=== PATIENT | female | born 1970 | race Caucasian/White ===

== ENCOUNTER 2021-11-08 08:53 | Emergency (ER) | payer SELFPAY ==
[~2021-11-08] VITALS: Ht 152.4 cm; Wt 68.1 kg
[2021-11-08 08:59] VITALS: BP 205/119
[2021-11-08 09:30] VITALS: BP 167/107
[2021-11-08] MEDS ORDERED: PAXLOVID PO (09:44)
[2021-11-08 09:53] VITALS: BP 167/107
== END 2021-11-08 09:53 | disposition home or self-care (01) | DRG 179 ==
LOC: ED 08:53
DX: U07.1 COVID-19 (principal); H92.02 Otalgia, left ear; R51.9 Headache, unspecified; R09.89 Other specified symptoms and signs involving the circulatory and respiratory systems

== ENCOUNTER 2022-05-04 13:34 | Emergency (ER) | payer SELFPAY ==
[~2022-05-04] VITALS: Ht 152.4 cm; Wt 69.0 kg
[2022-05-04] VITALS (11 sets, daily range): BP systolic 150–202; BP diastolic 95–133
[~2022-05-04 13:34] MED LIST: PAXLOVID PO
[2022-05-04 15:55] LABS: BASO% 0.4 % (0-3); EOS% 0.4 % (0-8); HEMATOCRIT 38.7 % (37.0-47.0); HEMOGLOBIN 13.9 g/dl (12.0-16.0); IMMATURE GRANULOCYTES 0.2 % (0.0-5.0); LYMPH% 14.7 % (15-41); MEAN CELL VOLUME 89.8 fL CALC (80.0-100.0); MEAN CORPUSCULAR HGB 32.3 pG CALC (26.0-32.0); MEAN CORPUSCULAR HGB CONC 35.9 g/dL CAL (32.0-36.0); MONO% 4.6 % (2-13); NEUT# 9.81 thou/uL (2.00-7.15); NEUT% 79.7 % (42-76); RED BLOOD COUNT 4.31 mill/uL (4.20-5.60); RED CELL DISTRI WIDTH 13.1 % (11.5-15.5)
[2022-05-04 16:08] LABS: ALBUMIN 4.5 g/dL (3.2-5.0); ALKALINE PHOSPHATASE 103 u/l (38-126); ANION GAP 11 (6-22 (CALC)); BILIRUBIN, TOTAL 0.8 mg/dL (0.0-1.4); BUN 5 mg/dL (7-17); BUN/CREATININE RATIO 8 (12-20 (CALC)); CARBON DIOXIDE 27 mmol/l (22-30); CHLORIDE 103 mmol/l (95-108); CREATININE 0.6 mg/dL (0.5-1.0); GFR FOR AFR.AMER. > 60 ML/MIN (>=60 (CALC)); GFR OTHER RACES > 60 ML/MIN (>=60 (CALC)); POTASSIUM 3.3 mmol/l (3.5-5.1); SGOT/AST 26 u/l (14-36); SODIUM 137 mmol/l (137-146); TOTAL PROTEIN 8.9 g/dL (6.3-8.2)
[2022-05-04 16:55] LABS: URINE BILIRUBIN - DIPSTICK NEGATIVE (NEGATIVE); URINE BLOOD DIPSTICK SMALL (NEGATIVE); URINE COLOR YELLOW; URINE GLUCOSE - DIPSTICK NEGATIVE (NEGATIVE); URINE KETONE 15 mg/dL (NEGATIVE); URINE LEUK ESTERASE NEGATIVE (NEGATIVE); URINE PROTEIN - DIPSTICK TRACE mg/dL (NEG-TRACE); URINE SPECIFIC GRAVITY 1.025
[2022-05-04 17:10] LABS: URINE NITRITE - DIPSTICK NEGATIVE (Negative)
[2022-05-04 17:14] LABS: URINE RBC 0-2 RBC/hpf (0-5); URINE SQUAMOUS EPITHELIAL CELL FEW EPI/hpf (0-FEW); URINE WBC 0-2 WBC/hpf (0-5)
[2022-05-04] MEDS ORDERED: NORVASC5 M1 PO (19:28)
[2022-05-04] MEDS ORDERED: ZYRTEC10 MG PO (19:28)
== END 2022-05-04 20:30 | disposition home or self-care (01) | DRG 866 ==
LOC: ED 13:34
PROVIDERS: Family Medicine; Nurse Practitioner
DX: B34.9 Viral infection, unspecified (principal); I10 Essential (primary) hypertension

== ENCOUNTER 2022-07-19 17:54 | Emergency (ER) | payer SELFPAY ==
[~2022-07-19] VITALS: Ht 152.4 cm; Wt 67.1 kg
[~2022-07-19 17:54] MED LIST changes: +NORVASC5 M1 PO; +ZYRTEC10 MG PO
[2022-07-19 19:27] VITALS: BP 195/111
[2022-07-19 19:30] VITALS: BP 184/124
[2022-07-19 19:50] LABS: URINE BILIRUBIN - DIPSTICK NEGATIVE (NEGATIVE); URINE BLOOD DIPSTICK TRACE-INTACT (NEGATIVE); URINE COLOR YELLOW; URINE GLUCOSE - DIPSTICK NEGATIVE (NEGATIVE); URINE KETONE NEGATIVE (NEGATIVE); URINE LEUK ESTERASE NEGATIVE (NEGATIVE); URINE PROTEIN - DIPSTICK NEGATIVE (NEG-TRACE); URINE SPECIFIC GRAVITY >=1.030; URINE UROBILINOGEN - DIPSTICK 0.2 E.U./dL (0.2)
[2022-07-19 19:57] LABS: URINE NITRITE - DIPSTICK NEGATIVE (Negative)
[2022-07-19 21:45] VITALS: BP 135/72
== END 2022-07-19 21:48 | disposition home or self-care (01) | DRG 761 ==
LOC: ED 17:54
PROVIDERS: Family Medicine
DX: N89.8 Other specified noninflammatory disorders of vagina (principal)

== ENCOUNTER 2023-01-16 11:11 | Emergency (ER) | payer SELFPAY ==
[~2023-01-16] VITALS: Ht 152.4 cm; Wt 70.0 kg
[2023-01-16] VITALS (23 sets, daily range): BP systolic 134–215; BP diastolic 91–131
[2023-01-16] MEDS ORDERED: LISINOP/HCTZ1 TA2 PO (13:37)
== END 2023-01-16 15:14 | disposition home or self-care (01) | DRG 305 ==
LOC: ED 11:11
DX: I10 Essential (primary) hypertension (principal); T46.5X6A Underdosing of other antihypertensive drugs, initial encounter; Z91.128 Patient's intentional underdosing of medication regimen for other reason

== ENCOUNTER 2023-12-22 07:45 | Emergency (ER) | payer OTHER ==
[~2023-12-22] VITALS: Ht 152.4 cm; Wt 70.0 kg
[2023-12-22] VITALS (12 sets, daily range): BP systolic 113–141; BP diastolic 80–98
[~2023-12-22 07:45] MED LIST changes: +AMOX/K CLAV875 M1 PO; +LISINOP/HCTZ1 TA2 PO; +PERCOCET 5/325M1 TAB PO
[2023-12-22 08:21] LABS: URINE BILIRUBIN - DIPSTICK Negative (NEGATIVE); URINE BLOOD DIPSTICK Trace-lysed (NEGATIVE); URINE GLUCOSE - DIPSTICK Negative (NEGATIVE); URINE KETONE Negative (NEGATIVE); URINE LEUK ESTERASE Negative (NEGATIVE); URINE NITRITE - DIPSTICK Negative (Negative); URINE PH 5.5 (4.5-8.0); URINE PROTEIN - DIPSTICK Negative (NEG-TRACE); URINE SPECIFIC GRAVITY 1.025; URINE UROBILINOGEN - DIPSTICK 0.2 E.U./dL (0.2)
[2023-12-22 08:25] LABS: URINE COLOR Yellow
[2023-12-22] MEDS ORDERED: KETOROLAC TROMETHAMINE 30 MG/ML SDV IV ONE (09:20)
[2023-12-22] MEDS ORDERED: ASPIRIN 81 MG/TAB PO ONE (09:20)
[2023-12-22 09:53] LABS: BASO% 0.4 % (0-3); EOS% 0.6 % (0-8); HEMATOCRIT 37.5 % (37.0-47.0); HEMOGLOBIN 12.6 g/dl (12.0-16.0); IMMATURE GRANULOCYTES 0.2 % (0.0-5.0); LYMPH% 14.2 % (15-41); MEAN CELL VOLUME 92.8 fL CALC (80.0-100.0); MEAN CORPUSCULAR HGB 31.2 pG CALC (26.0-32.0); MEAN CORPUSCULAR HGB CONC 33.6 g/dL CAL (32.0-36.0); MONO% 6.8 % (2-13); NEUT# 8.8 thou/uL (2.00-7.15); NEUT% 77.8 % (42-76); RED BLOOD COUNT 4.04 mill/uL (4.20-5.60); RED CELL DISTRI WIDTH 12.7 % (11.5-15.5)
[2023-12-22 10:05] LABS: ALBUMIN 4.3 g/dL (3.2-5.0); ALKALINE PHOSPHATASE 59 u/l (38-126); ANION GAP 8 (6-22 (CALC)); BUN 13 mg/dL (7-17); BUN/CREATININE RATIO 18 (12-20 (CALC)); CARBON DIOXIDE 26 mmol/l (22-30); CHLORIDE 108 mmol/l (95-108); CREATININE 0.7 mg/dL (0.5-1.0); ESTIMATED GFR 105 ML/MIN (>=90 (CALC)); LIPASE 41 u/l (23-300); POTASSIUM 4.2 mmol/l (3.5-5.1); SGOT/AST 32 u/l (14-36); SODIUM 137 mmol/l (137-146); TOTAL PROTEIN 8.1 g/dL (6.3-8.2)
[2023-12-22 10:06] LABS: BILIRUBIN, TOTAL 0.9 mg/dL (0.02-1.3)
[2023-12-22] MEDS ORDERED: PAXLOVID PO (10:24)
== END 2023-12-22 10:41 | disposition home or self-care (01) | DRG 179 ==
LOC: ED 07:45
PROVIDERS: Family Medicine
DX: U07.1 COVID-19 (principal); R05.9 Cough, unspecified; I10 Essential (primary) hypertension

== ENCOUNTER 2024-01-26 14:48 | Emergency (ER) | payer OTHER ==
[2024-01-26] VITALS (9 sets, daily range): BP systolic 122–153; BP diastolic 78–117
[~2024-01-26] VITALS: Ht 152.4 cm; Wt 72.5 kg
[2024-01-26 15:33] LABS: BASO% 0.4 % (0-3); EOS% 1.1 % (0-8); HEMATOCRIT 40.8 % (37.0-47.0); IMMATURE GRANULOCYTES 0.1 % (0.0-5.0); LYMPH% 36.8 % (15-41); MEAN CELL VOLUME 91.7 fL CALC (80.0-100.0); MEAN CORPUSCULAR HGB 31.5 pG CALC (26.0-32.0); MEAN CORPUSCULAR HGB CONC 34.3 g/dL CAL (32.0-36.0); MONO% 4.5 % (2-13); NEUT# 5.89 thou/uL (2.00-7.15); NEUT% 57.1 % (42-76); RED BLOOD COUNT 4.45 mill/uL (4.20-5.60); RED CELL DISTRI WIDTH 12.7 % (11.5-15.5)
[2024-01-26] MEDS ORDERED: HYDROmorphone HCL 2 MG/AMP IV ONE (15:35)
[2024-01-26 15:36] LABS: URINE BILIRUBIN - DIPSTICK Negative (NEGATIVE); URINE BLOOD DIPSTICK Negative (NEGATIVE); URINE GLUCOSE - DIPSTICK Negative (NEGATIVE); URINE KETONE Negative (NEGATIVE); URINE LEUK ESTERASE Negative (NEGATIVE); URINE NITRITE - DIPSTICK Negative (Negative); URINE PH 5.5 (4.5-8.0); URINE PROTEIN - DIPSTICK Negative (NEG-TRACE); URINE SPECIFIC GRAVITY >=1.030; URINE UROBILINOGEN - DIPSTICK 0.2 E.U./dL (0.2)
[2024-01-26 15:37] LABS: URINE COLOR Yellow
[2024-01-26 15:45] LABS: ALBUMIN 4.7 g/dL (3.2-5.0); AMYLASE 70 u/l (30-110); CREATININE 0.8 mg/dL (0.5-1.0); LIPASE 108 u/l (23-300); TOTAL PROTEIN 8.6 g/dL (6.3-8.2)
[2024-01-26 15:46] LABS: BILIRUBIN, TOTAL 0.5 mg/dL (0.02-1.3)
[2024-01-26] MEDS ORDERED: METHOCARBAMOL500 MG PO (17:08)
== END 2024-01-26 17:23 | disposition home or self-care (01) | DRG 392 ==
LOC: ED 14:48
PROVIDERS: Emergency Medicine; Nurse Practitioner Family
DX: R10.11 Right upper quadrant pain (principal); M54.6 Pain in thoracic spine; I10 Essential (primary) hypertension; Z90.49 Acquired absence of other specified parts of digestive tract
CPT/HCPCS: Q9967

== ENCOUNTER 2024-04-10 06:29 | Emergency (ER) | payer OTHER ==
[~2024-04-10] VITALS: Ht 152.4 cm; Wt 78.0 kg
[~2024-04-10 06:29] MED LIST changes: +METHOCARBAMOL500 MG PO
[2024-04-10] MEDS ORDERED: KETOROLAC TROMETHAMINE 30 MG/ML SDV IV ONE (07:10)
[2024-04-10 07:31] LABS: URINE BLOOD DIPSTICK Moderate (NEGATIVE); URINE GLUCOSE - DIPSTICK Negative (NEGATIVE); URINE KETONE Negative (NEGATIVE); URINE LEUK ESTERASE Negative (NEGATIVE); URINE PROTEIN - DIPSTICK Trace mg/dL (NEG-TRACE); URINE SPECIFIC GRAVITY >=1.030
[2024-04-10 07:33] LABS: URINE COLOR Yellow
[2024-04-10 07:34] LABS: BASO% 0.2 % (0-3); EOS% 1.1 % (0-8); HEMATOCRIT 37.5 % (37.0-47.0); HEMOGLOBIN 12.7 g/dl (12.0-16.0); IMMATURE GRANULOCYTES 0.1 % (0.0-5.0); LYMPH% 32.5 % (15-41); MEAN CELL VOLUME 91.5 fL CALC (80.0-100.0); MEAN CORPUSCULAR HGB CONC 33.9 g/dL CAL (32.0-36.0); MONO% 5.9 % (2-13); NEUT# 4.88 thou/uL (2.00-7.15); NEUT% 60.2 % (42-76); RED BLOOD COUNT 4.1 mill/uL (4.20-5.60); RED CELL DISTRI WIDTH 12.4 % (11.5-15.5)
[2024-04-10 07:41] LABS: URINE NITRITE - DIPSTICK Negative (Negative)
[2024-04-10 07:42] LABS: URINE BACTERIA RARE hpf; URINE EPITHELIAL CELLS MODERATE EPI/hpf (0-FEW); URINE MUCUS FEW hpf (NONE-FEW); URINE WBC 0-2 WBC/hpf (0-5)
[2024-04-10 07:50] LABS: ALBUMIN 4.4 g/dL (3.2-5.0); TOTAL PROTEIN 7.9 g/dL (6.3-8.2)
[2024-04-10 07:55] LABS: CREATININE 0.7 mg/dL (0.5-1.0)
[2024-04-10] MEDS ORDERED: METHOCARBAMOL500 MG PO (11:09)
[2024-04-10] MEDS ORDERED: IBUPROFEN600 MG PO (11:09)
[2024-04-10 11:24] VITALS: BP 116/87
== END 2024-04-10 11:53 | disposition home or self-care (01) | DRG 392 ==
LOC: ED 06:29
PROVIDERS: Emergency Medicine
DX: R10.9 Unspecified abdominal pain (principal); R31.9 Hematuria, unspecified